=== PATIENT | male | born 1955 | race Native Hawaiian/Other Pacific Islander ===

== ENCOUNTER 2017-02-27 07:59 | Outpatient (CLI) | payer BC ==
[~2017-02-27 07:59] MED LIST: LOSA50TA PO; OMEP40CA PO
== END 2017-02-27 19:30 | disposition home or self-care (01) ==
LOC: LABW 07:59
PROVIDERS: Nurse Practitioner Adult Health
DX: E78.2 Mixed hyperlipidemia (principal); Z79.899 Other long term (current) drug therapy; Z51.81 Encounter for therapeutic drug level monitoring
CPT/HCPCS: 36415; 80061; 80076

== ENCOUNTER 2017-09-06 07:28 | Outpatient (CLI) | payer BC | END 2017-09-07 05:16 | disposition home or self-care (01) | LOC: LABW 07:28 | PROVIDERS: Nurse Practitioner Adult Health | DX: E78.2 Mixed hyperlipidemia (principal); Z79.899 Other long term (current) drug therapy; Z51.81 Encounter for therapeutic drug level monitoring | CPT/HCPCS: 36415; 80061; 80076 ==

== ENCOUNTER 2018-05-29 07:47 | Outpatient (CLI) | payer BC | END 2018-05-29 19:32 | disposition home or self-care (01) | LOC: LABW 07:47 | PROVIDERS: Nurse Practitioner Adult Health | DX: E78.2 Mixed hyperlipidemia (principal); I25.10 Atherosclerotic heart disease of native coronary artery without angina pectoris | CPT/HCPCS: 36415; 80061; 80076 ==

== ENCOUNTER 2019-10-22 15:59 | Observation (INO) | payer OTHER, BC ==
[~2019-10-22] VITALS: Ht 167.6 cm; Wt 71.0 kg
[2019-10-22] VITALS (7 sets, daily range): BP systolic 83–150; BP diastolic 51–73; TEMP 98–98.4; Ht 167.6 cm; Wt 71.0 kg
[2019-10-22 16:30] LABS: PLATELET COUNT 246 K/uL (142-355); POTASSIUM 3.5 mmol/L (3.6-5.2); SODIUM 138 mmol/L (136-145)
[2019-10-22 16:51] LABS: PARTIAL THROMBOPLASTIN TIME 21.5 SECONDS (24.5-33.6)
--- NOTE | 2019-10-22 18:41 | NUR ---
PATIENT ADMITTED AT 1747 FROM ER FROM [facility] RN TO ROOM 1107. PATIENT ORIENTED TO ROOM AND USE OF CALL LIGHT. PATIENT HAD A SYNCOPAL EPISODE AT HOME AFTER HAVING DENTAL IMPLANTS PUT IN AND 2 HRS AFTER TAKING A HYDROCODONE TABLET. PATIENT STATED HE LOST CONSCIOUSNESS AT HOME BRIEFLY AND SWEATED AND FELL THEN CAME INTO ER PER POV WITH HYPOTENSION THATS RELIEVED AT THIS TIME. C/O NAUSEA. SOFRAN IV GIVEN IN ER. MED LIST RECIEVED FROM [facility]. ONCOMING NURSE TO BE GIVEN REPORT.
[2019-10-23 03:49] VITALS: BP 118/72; TEMP 98
[2019-10-23 08:00] VITALS: BP 133/67; TEMP 97.9
[2019-10-23] MEDS ORDERED: LIPITOR40 MG PO (10:19)
[2019-10-23] MEDS ORDERED: ONDA2INJ2 IV (10:20)
[2019-10-23] MEDS ORDERED: CLIN300C PO (10:21)
[2019-10-23] MEDS ORDERED: FAMOTIDINE40 MG PO (10:23)
[2019-10-23] MEDS ORDERED: CHLORHEX GLU0.12 % MT (10:23)
[2019-10-23] MEDS ORDERED: CEFDINIR300 MG PO (10:26)
[2019-10-23] MEDS ORDERED: TRAMADOL HYDROC50 MG PO (10:27)
[2019-10-23] MEDS ORDERED: CYCLOBENZAPRINE10 MG PO (10:28)
[2019-10-23] MEDS ORDERED: ASA LOW DOSE81 MG PO (10:29)
[2019-10-23] MEDS ORDERED: CENTRUM SILVER1 TA2 PO (10:29)
[2019-10-23] MEDS ORDERED: TURMERI1 PO (10:38)
[2019-10-23 12:00] VITALS: BP 84/59; TEMP 98
--- NOTE | 2019-10-23 12:00 | NUR ---
IV TO THE LAC DISCONTINUED WITH TIP INTACT. PATIENT GIVEN DISCHARGE INSTRUCTIONS WITH VERBAL UNDERSTANDING NOTED IN HOW TO RECOGNIZE CHEST PAIN S/S. PATIENT WAS TAKEN VIA WHEELCHAIR TO POV IN NO ACUTE DISTRESS.
--- NOTE | 2019-10-23 13:10 | NUR ---
Patient had a syncope episode and is on a 2 Gm Na diet plan and CP and Hypotension and is a 64 YOM, CAD, reviewed labs gl 132 elevated, MVI, K depressed, 66" and IBW = 142+/-10% (128 to 156 lbs.) and kcal needs for IBW x 25 to 40 = 1600 to 2600 kcal/day, protein needs x .8 to 1.5 = 52 to 97 grams a day and fluids for weight x 25 to 30 = 1800 to 2200 ml per day. BMI = 25.33 overweight and is 111% IBW. Recommendations: 1- D/C MVI if eating 75% of meals. 2-Hoor all food preferences 3-May want to add Cardiac or low fat to diet plan d/t dx. 4-May want to add high fiber d/t gl elevated 5-Monitor labs and po intake.
== END 2019-10-23 11:50 | disposition home or self-care (01) ==
LOC: ED 15:59 → MED/SURG 17:10
PROVIDERS: ADMIT Hospitalist
DX: R55 Syncope and collapse (principal); I25.10 Atherosclerotic heart disease of native coronary artery without angina pectoris; I10 Essential (primary) hypertension; I95.89 Other hypotension; R11.10 Vomiting, unspecified; R06.02 Shortness of breath
CPT/HCPCS: 36415; 80053; 82550; 83880; 84484; 85027; 85379; 85610; 85730; 93005; 96360; 96365; 96372; 96375; 99220; 99284; G0378; J1650; J2405; J3490

== ENCOUNTER 2020-08-09 08:39 | Emergency (ER) | payer OTHER, BC ==
[~2020-08-09] VITALS: Ht 167.6 cm; Wt 70.8 kg
[~2020-08-09 08:39] MED LIST changes: +ASA LOW DOSE81 MG PO; +CEFDINIR300 MG PO; +CENTRUM SILVER1 TA2 PO; +CHLORHEX GLU0.12 % MT; +CLIN300C PO; +CYCLOBENZAPRINE10 MG PO; +FAMOTIDINE40 MG PO; +LIPITOR40 MG PO; +ONDA2INJ2 IV; +TRAMADOL HYDROC50 MG PO; +TURMERI1 PO
[2020-08-09 08:41] VITALS: TEMP 98
[2020-08-09 09:29] LABS: POTASSIUM 4.2 mmol/L (3.6-5.2)
[2020-08-09 09:42] LABS: PLATELET COUNT 245 K/uL (142-355)
[2020-08-09 09:55] LABS: PARTIAL THROMBOPLASTIN TIME 21.9 SECONDS (24.5-33.6)
[2020-08-09 12:09] VITALS: BP 129/72
== END 2020-08-09 12:09 | disposition home or self-care (01) ==
LOC: ED 08:39
PROVIDERS: Family Medicine
DX: M51.16 Intervertebral disc disorders with radiculopathy, lumbar region (principal); R55 Syncope and collapse
CPT/HCPCS: 36415; 80053; 84484; 85027; 85610; 85730; 93005; 96374; 96375; 99284; J2175; J2550